=== PATIENT | male | born 1985 | race Caucasian/White ===

== ENCOUNTER 2023-04-15 21:52 | Emergency (ER) | payer BC ==
[~2023-04-15] VITALS: Ht 195.5 cm; Wt 131.5 kg
[~2023-04-15 21:52] MED LIST: EC NAPROSYN500 MG PO; FLEXERIL10 MG PO; HYDROCODONE BIT1 T11 PO; LEVOFLOXACIN500 MG PO; NKHM; PENICILLIN VK500 MG PO; TRAMADOL HCL50 MG PO; TRIMOX500 MG PO
== END 2023-04-15 22:54 | disposition home or self-care (01) ==
LOC: ED 21:52
DX: S61.211A Laceration without foreign body of left index finger without damage to nail, initial encounter (principal); W26.8XXA Contact with other sharp object(s), not elsewhere classified, initial encounter; Y93.89 Activity, other specified; Y92.89 Other specified places as the place of occurrence of the external cause; Y99.8 Other external cause status

== ENCOUNTER → 2024-08-14 | Outpatient (CLI) | payer BC ==
[2024-08-14 16:41] LABS: VITAMIN D, 25-HYDROXY 38.1 ng/mL (30-100)
== END | disposition home or self-care (01) ==
LOC: LAB 15:41
PROVIDERS: Student in an Organized Health Care Education/Training Program; ATTEND Internal Medicine
DX: E29.1 Testicular hypofunction (principal); R53.83 Other fatigue

== ENCOUNTER 2025-05-07 16:22 | Emergency (ER) | payer BC ==
[~2025-05-07] VITALS: Ht 195.5 cm; Wt 127.0 kg
[2025-05-07] MEDS ORDERED: KETOROLAC10 MG PO (16:40)
[2025-05-07] MEDS ORDERED: TADALAFIL5 M1 PO (16:41)
[2025-05-07] MEDS ORDERED: ADDERALL 30 MG30 MG PO (16:41)
[2025-05-07] MEDS ORDERED: Ondansetron Hydrochloride 4 MG/2 ML VIAL IV ONE (17:05)
[2025-05-07] MEDS ORDERED: SODIUM CHLORIDE 0.9% 1,000 ML IV ONE (17:05)
[2025-05-07 17:14] LABS: BILIRUBIN Negative (Negative); BLOOD 1+ (Negative); CLARITY Clear (Clear); COLOR Yellow (Yellow); KETONE Negative (Negative); LEUKO ESTERASE Negative (Negative); NITRITE Negative (Negative); PH 6.0 (4.5-8.0); SPECIFIC GRAVITY 1.010 (1.001-1.030); UROBILINOGEN 0.2 E.U./dl (0.0-1.0)
[2025-05-07 17:24] LABS: BASO # 0.0 10*3/uL (0.0-0.1); BASO % 0.4 % (0.0-1.0); EOS # 0.1 10*3/uL (0.0-0.4); EOS % 1.8 % (1.0-4.0); MEAN CELL VOLUME 92.4 fl (80.0-94.0); MEAN CORPUSCULAR HGB 30.5 pg (27.0-31.0); MEAN PLATELET VOLUME 9.0 fl (9.6-12.3); MONO # 0.9 10*3/uL (0.1-1.0); MONO % 11.6 % (3.0-9.0); NEUT # 5.1 10*3/uL (2.3-7.9); NEUT % 66.3 % (47.0-73.0); NUCLEATED RED BLOOD CELL 0.0 % (0.0-0.0); NUCLEATED RED BLOOD CELL 0.0 10*3/uL (0.0-0.0); PLATELET COUNT AUTOMATED 236 10*3/uL (130-400); RED CELL DISTRI WIDTH 12.1 % (0-14.5)
[2025-05-07 17:27] LABS: WBC 0-2 wbc/hpf (0-5)
[2025-05-07 17:46] LABS: BUN 16 mg/dl (9-23); SGPT/ALT 17 U/L (5-49)
[2025-05-07] MEDS ORDERED: ACETAMINOPHEN 325 MG TAB PO ONE (17:55)
[2025-05-07] MEDS ORDERED: Ciprofloxacin Hydrochloride 500 MG TAB PO ONE (18:15)
[2025-05-07] MEDS ORDERED: metroNIDAZOLE 500 MG TAB PO ONE (18:15)
[2025-05-07] MEDS ORDERED: CIPRO500 MG PO (18:18)
[2025-05-07] MEDS ORDERED: METRONIDAZOLE500 M1 PO (18:18)
== END 2025-05-07 18:27 | disposition home or self-care (01) ==
LOC: ED 16:22
PROVIDERS: Emergency Medicine
DX: K57.92 Diverticulitis of intestine, part unspecified, without perforation or abscess without bleeding (principal); F90.9 Attention-deficit hyperactivity disorder, unspecified type; M19.90 Unspecified osteoarthritis, unspecified site; F32.A Depression, unspecified; R10.31 Right lower quadrant pain; R10.32 Left lower quadrant pain; Z87.891 Personal history of nicotine dependence